=== PATIENT | male | born 1955 | race African-American/Black ===

== ENCOUNTER 2020-07-13 15:49 | Emergency (ER) | payer MEDICARE ==
[~2020-07-13] VITALS: Ht 182.9 cm; Wt 78.0 kg
[2020-07-13] MEDS ORDERED: LIDOCAINE HCL 2% LOCAL 20 ML VIAL ONE (16:07)
[2020-07-13] MEDS ORDERED: BACITRACIN ZINC 0.9GM TP ONE (16:28)
--- OUTSIDE RECORDS SUMMARY | 2020-07-13 16:47 | XMS REPORT | Continuity of Care Document ---
Author Author [facility] t Organization [facility] Address [address] [place] [address] Phone Unavailable Care Team Providers Care Parts Counterman Name Role Phone Amanda Cruz MD PCP [phone] GARCIA STEELE Attphys Unavailable JESSICA, M. ALINE Attphys Unavailable DEREK KEARNEY Admphys Unavailable JESSICA, M. ALINE Admphys Unavailable Problems Condition Name Condition Details Condition Category Status Onset Date Resolution Date Last Treatment Date Treating Clinician Comments Source Fever in adult Fever in adult Disease Active 2017-07-31 00:00:00 [facility] Pneumonia Pneumonia Disease Active 2017-07-31 00:00:00 [facility] DOT (acute kidney injury) DOT (acute kidney injury) Disease Ac tive 2017-03-15 00:00:00 [facility] CKD (chronic kidney disease) stage 2, GFR 60-89 ml/min CKD (chronic kidney disease) stage 2, GFR 60-89 ml/min Disease Active 2017-03-15 00:00:00 [facility] Essential hypertension Essential hypertension Disease Active 2017-03-15 00:00:00 [facility] Crohn disease Crohn disease Disease Active 2017-03-15 00:00:00 [facility] Gastroesophageal reflux disease without esophagitis Ga stroesophageal reflux disease without esophagitis Disease Active 2017-03-15 00:00:00 [facility] Currently smokes tobacco Currently smokes tobacco Disease Acti ve 2017-03-15 00:00:00 [facility] Allergies, Adverse Reactions, Alerts This patient has no known allergies or adverse reactions. Social History Social Habit Start Date Stop Date Quantity Comments Source Sex Assigned At [facility] Tobacco use and exposure 2017-08-02 00:00:00 2017-08-02 00:00:00 Rob rivera used [facility] Alcohol intake 2017-08-02 00:00:00 2017-08-02 00:00:00 Current drinker of alcohol (finding) [facility] Smoking Status Start Date Stop Date Source Current every day smoker 2017-08-02 00:00:00 [facility] Medications Ordered Medication Name Filled Medication Name Start Date Stop Da te Current Medication? Ordering Clinician Indication Dosage Frequency Signature (SIG) Comments Components Source lansoprazole (PREVACID) 30 MG capsule 2017-08-02 11:47:26 Yes gastroesophageal reflux disease 30mg QD Take 30 mg by mouth daily. [facility] cyanocobalamin (VITAMIN B-12) 1,000 mcg/mL injection 2 11:47:26 Yes 1000ug Inject 1,000 mcg intramuscularly every 3 0 (thirty) days. [facility] traMADol (ULTRAM) 50 mg tablet 2017-08-02 11:47:26 Yes 50mg Take 50 mg by mouth every 8 (eight) hours as needed for Pain. [facility] quinapril-hydrochlorothiazide (ACCURETIC) 20-12.5 mg per tab let 2017-08-02 11:47:26 Yes 1{tbl} QD Take 1 tablet by mouth daily. [facility] predniSONE (DELTASONE) 10 MG tablet 2017-08-02 11:47:26 Yes 10mg Take 10 mg by mouth daily as needed. [facility] Procedures This patient has no known procedures. Plan of Care Planned Activity Planned Date Details Comments Source Future Scheduled Test 2020-04-22 00:00:00 INFLUENZA VACCINE (#1) [code = INFLUENZA VACCINE (#1)] [facility] Future Scheduled Test 2019 00:00:00 PNEUMOCOCCAL 65+ Y RS (2 of 2 - PPSV23) [code = PNEUMOCOCCAL 65+ YRS (2 of 2 - PPSV23)] [facility] Future Scheduled Test 1954 00:00:00 Screening for radhika gnant neoplasm of colon (procedure) [code = 884280613] [facility] Results Test Description Test Time Test Comments Results Result Comments Source BLOOD CULTURE 2017-08-06 05:01:00 Test Item CULTURE (BEAKER) (test code = 1095) No growth in 5 days BLOOD [id number] 17:00:00* Test Item Value Reference Range Interpretation Comments CULTURE (BEAKER) (test code = 1095) No growth in 5 days STOOL CULTURE + SHIGA [id number] 11:09:00* Test Item Value Reference Range Interpretation Comments CULTURE (BEAKER) (test code = 1095) No Salmonella, Sharmin gella or Campylobacter isolated SHIGA TOXIN [id number] 15:52:00* Test Item Value Reference Range Interpretation Comments SHIGA TOXIN 1 (BEAKER) (test code = 2177) Not detected Not detected SHIGA TOXIN 2 (BEAKER) (test code = 2179) Not detected Not detected INFLUENZA A H1N1 [id number] 14:28:00* Test Item Value Reference Range Interpretation Comments INFLUENZA A RNA (BEAKER) (test code = 1545) Not Detected Not Detected, Inconclusive NOVEL H1N1 RNA (BEAKER) (test code = 1546) Not Detected Not Detected, Inconclusive These assays were performed by real-time RT-PCR (business insurance agent-PCR) utilizing fluorogenic hydrolysis probe technology for the detection of human Influenza A viruses and t he differential detection of novel H1N1 Influenza virus in respiratory specimens . The test is composed of (1) an RNA extraction from patient specimen, and (2) r RT-PCR amplification and detection with human Influenza A and novel Q2D8-udhoplb c primers and probes. A well-conserved region of the Influenza A matrix gene is targeted in one set of reactions to identify both seasonal Influenza A and novel H1N1 Influenza virus in the specimen. In addition, a specific region of the he magglutinin gene is targeted to differentiate the novel H1N1 virus from the seas onal human influenza. An internal control is used to confirm PCR amplification. Genetic variation and other factors can affect the accuracy of nucleic acid debbie ting; therefore, the results should be interpreted in light of clinical data. Th is test was developed and its performance characteristics determined by the [facility] Pathology Department, Section of Molecular Pathology. It has not been cleared or approved by the U.S. Food and Drug Administration (F DA). Since FDA approval is not required for clinical use of the test, validatio n was done as required by The Clinical Laboratory Amendments of 1988.These assay s were performed by real-time RT-PCR (business insurance agent-PCR) utilizing fluorogenic hydrolysis probe technology for the detection of human Influenza A viruses and the differ tial detection of novel H1N1 Influenza virus in respiratory specimens. The test is composed of (1) an RNA extraction from patient specimen, and (2) business insurance agent-PCR ampl ification and detection with human Influenza A and novel D4X2-qmklptan primers a nd probes. A well-conserved region of the Influenza A matrix gene is targeted in one set of reactions to identify both seasonal Influenza A and novel H1N1 Influ bertin virus in the specimen. In addition, a specific region of the hemagglutinin gene is targeted to differentiate the novel H1N1 virus from the seasonal human influenza. An internal control is used to confirm PCR amplification. Genetic va riation and other factors can affect the accuracy of nucleic acid testing; there fore, the results should be interpreted in light of clinical data. This test was developed and its performance characteristics determined by the [facility] Pathology Department, Section of Molecular Pathology. It has not been cleared or approved by the U.S. Food and Drug Administration (FDA). Since FDA approval is not required for clinical use of the test, validation was done as required by The Clinical Laboratory Amendments of 1988.STOOL PATH CHARGE 2017-08-02 10:58:00* Test Item Value Reference Range Interpretation Comments PATHOGEN EXAM CHARGED (BEAKER) (test code = 2381) Done [id number] 05:24:00* Test Item Value Reference Range Interpretation Comments MAGNESIUM (BEAKER) (test code = 627) 1.8 mg/dL 1.6-2.6 BASIC METABOLIC [id number] 05:24:00* Test Item Value Reference Range Interpretation Comments SODIUM (BEAKER) (test code = 381) 136 meq/L 136-145 POTASSIUM (BEAKER) (test code = 379) 3.9 meq/L 3.5-5.1 CHLORIDE (BEAKER) (test code = 382) 113 meq/L 98-107 H CO2 (BEAKER) (test code = 355) 16 meq/L 22-29 L BLOOD UREA NITROGEN (BEAKER) (test code = 354) 11 mg/dL 7-21 CREATININE (BEAKER) (test code = 358) 0.95 mg/dL 0.57-1.25 GLUCOSE RANDOM (BEAKER) (test code = 652) 117 mg/dL 70-105 H CALCIUM (BEAKER) (test code = 697) 8.2 mg/dL 8.4-10.2 L EGFR (BEAKER) (test code = 1092) 97 mL/min/1.73 sq m ESTIMATED GFR IS NOT ACCURATE CREATININE CLEARANCE IN PREDICTING GLOMERULAR FILTRATION RATE. ESTIMATED GFR IS NOT APPLICABLE FOR DIALYSIS PATIENTS. CBC W/PLT COUNT & AUTO [id number] 04:49:00* Test Item Value Reference Range Interpretation Comments WHITE BLOOD CELL COUNT (BEAKER) (test code = 775) 7.3 K/ L 3.5- 10.5 RED BLOOD CELL COUNT (BEAKER) (test code = 761) 3.63 M/ L 4.63-6 .08 L HEMOGLOBIN (BEAKER) (test code = 410) 11.3 GM/DL 13.7-17.5 L HEMATOCRIT (BEAKER) (test code = 411) 34.2 % 40.1-51.0 L MEAN CORPUSCULAR VOLUME (BEAKER) (test code = 753) 94.2 fL 79. 0-92.2 H MEAN CORPUSCULAR HEMOGLOBIN (BEAKER) (test code = 751) 31.1 pg 25.7-32.2 MEAN CORPUSCULAR HEMOGLOBIN CONC (BEAKER) (test code = 752) 33.0 GM/DL 32.3-36.5 RED CELL DISTRIBUTION WIDTH (BEAKER) (test code = 412) 13.2 % 11.6-14.4 PLATELET COUNT (BEAKER) (test code = 756) 402 K/CU MM 150-450 MEAN PLATELET VOLUME (BEAKER) (test code = 754) 8.7 fL 9.4-12 .4 L NUCLEATED RED BLOOD CELLS (BEAKER) (test code = 413) 0 /100 WBC 0 -0 NEUTROPHILS RELATIVE PERCENT (BEAKER) (test code = 429) 51 % LYMPHOCYTES RELATIVE PERCENT (BEAKER) (test code = 430) 36 % MONOCYTES RELATIVE PERCENT (BEAKER) (test code = 431) 10 % EOSINOPHILS RELATIVE PERCENT (BEAKER) (test code = 432) 2 % BASOPHILS RELATIVE PERCENT (BEAKER) (test code = 437) 1 % NEUTROPHILS ABSOLUTE COUNT (BEAKER) (test code = 670) 3.74 K/ L 1.78-5.38 LYMPHOCYTES ABSOLUTE COUNT (BEAKER) (test code = 414) 2.63 K/ L 1.32-3.57 MONOCYTES ABSOLUTE COUNT (BEAKER) (test code = 415) 0.73 K/ L 0. 30-0.82 EOSINOPHILS ABSOLUTE COUNT (BEAKER) (test code = 416) 0.11 K/ L 0.04-0.54 BASOPHILS ABSOLUTE COUNT (BEAKER) (test code = 417) 0.04 K/ L 0. 01-0.08 IMMATURE GRANULOCYTES-RELATIVE PERCENT (BEAKER) (test code = 2801) 1 % 0-1 SPUTUM CULTURE + GRAM [id number] 02:01:00* Test Item Value Reference Range Interpretation Comments CULTURE (BEAKER) (test code = 1095) Oropharyngeal cont amination, specimen rejected. Recollect requested. GRAM STAIN RESULT (BEAKER) (test code = 1123) 1+ WBCs GRAM STAIN RESULT (BEAKER) (test code = 03720) >25 epithelial cells GRAM STAIN RESULT (BEAKER) (test code = 75769) 4+ gram positive cocci in chains, pairs and clusters GRAM STAIN RESULT (BEAKER) (test code = 670033) 4+ gram variable ro ds RESPIRATORY PANEL [id number] 19:51:00* Test Item Value Reference Range Interpretation Comments HUMAN METAPNEUMOVIRUS (BEAKER) (test code = 2683) Not detect ed Not detected, Inconclusive RHINOVIRUS (BEAKER) (test code = 2684) Not detected Not detec lex, Inconclusive INFLUENZA A (BEAKER) (test code = 2685) Not detected Not dete cted, Inconclusive INFLUENZA A SUBTYPE H1 (BEAKER) (test code = 2686) Not detec lex Not detected, Inconclusive INFLUENZA A SUBTYPE H3 (BEAKER) (test code = 2687) Not detec lex Not detected, Inconclusive INFLUENZA A SUBTYPE H1-2009 (BEAKER) (test code = 3198) Not detected Not detected, Inconclusive INFLUENZA B (BEAKER) (test code = 2688) Not detected Not dete cted, Inconclusive RESPIRATORY SYNCYTIAL VIRUS (BEAKER) (test code = 3197) Not detected Not detected, Inconclusive PARAINFLUENZA VIRUS 1 (BEAKER) (test code = 2691) Not detect ed Not detected, Inconclusive PARAINFLUENZA VIRUS 2 (BEAKER) (test code = 2692) Not detect ed Not detected, Inconclusive PARAINFLUENZA VIRUS 3 (BEAKER) (test code = 2693) Not detect ed Not detected, Inconclusive PARAINFLUENZA VIRUS 4 (BEAKER) (test code = 3200) Not detect ed Not detected, Inconclusive ADENOVIRUS (BEAKER) (test code = 2694) Not detected Not detec lex, Inconclusive CORONAVIRUS 229E (BEAKER) (test code = 3201) Not detected Not detected, Inconclusive CORONAVIRUS HKU1 (BEAKER) (test code = 3202) Not detected Not detected, Inconclusive CORONAVIRUS NL63 (BEAKER) (test code = 3203) Not detected Not detected, Inconclusive CORONAVIRUS OC43 (BEAKER) (test code = 3204) Not detected Not detected, Inconclusive BORDETELLA PERTUSSIS (BEAKER) (test code = 3205) Not detecte d Not detected, Inconclusive CHLAMYDOPHILA PNEUMONIAE (BEAKER) (test code = 3206) Not det ected Not detected, Inconclusive MYCOPLASMA PNEUMONIAE (BEAKER) (test code = 3207) Not detect ed Not detected, Inconclusive CLOSTRIDIUM DIFFICILE TOXIN [id number] 13:31:00* Test Item Value Reference Range Interpretation Comments CLOSTRIDIUM DIFFICILE TOXIN, PCR (BEAKER) (test code = 1525) Not Detected Not Detected This qualitative real-time polymerase chain reaction assay detects the tcdB gene , encoded on the C.difficile pathogenicity locus (PaLoc). The product of tcdB, toxin B, is a cytotoxin essential for causing C.difficile-associated disease (CD AD) and is found in virtually all toxigenic C.difficile.This assay is performed for patients suspected of having either community-acquired or nosocomial CDAD. Accordingly, only symptomatic patients should be tested and formed stools will b e rejected unless ileus is present (i.e., specified when ordering). Patients ma y be colonized with toxigenic C.difficile strains not causing active disease; th erefore, clinical correlation is needed when deciding how to manage patients wit h a positive test result.The assay has not been validated as a test of cure as a mplifiable nucleic acid may persist after effective treatment; therefore, follow -up testing of a positive result is not recommended.[place] TITER AND PATTERN 2017-08-01 10:59:00* Test Item Value Reference Range Interpretation Comments VALENTINA TITER (BEAKER) (test code = 1541) >=:2560 [place] PATTERN (BEAKER) (test code = 1781) Homogeneous ANTI-NUCLEAR ANTIBODY (VAL[place])2017-08-01 10:58:00* Test Item Value Reference Range Interpretation Comments ANTI-NUCLEAR ANTIBODY ([place]) (BEAKER) (test code = 418) Positive Negative A LEGIONELLA ANTIGEN, [id number] 07:52:00* Test Item Value Reference Range Interpretation Comments L. PNEUMOPHILA SEROGP 1 UR AG (BEAKER) (test code = 11 56) Negative - see comment Negative for L. pneu mophila serogroup 1 antigen, suggesting no recent or current infection with this serogroup. Legionellosis cannot be ruled out since other serogroups and species may cause disease. STREP PNEUMONIAE [id number] 07:52:00* Test Item Value Reference Range Interpretation Comments STREP PNEUMONIAE ANTIGEN (BEAKER) (test code = 1615) P resumptive negative for pneumococcal pneumonia - see comment Presumptive negative for pneumococcal pneumonia - see commen Presumptive negative for pneumococcal pneumonia, suggesting no current or recent pneumococcal infection. Infection due to S. pneumoniae cannot be ruled out since the antigen present in the sample may be below the detection limit of the test. CT, CHEST, WITHOUT [id number] 07:46:00FINAL REPORT INDICATION: 62-year-old male with shortness of breath. COMPARISON:Chest radiograph July 31, 2017Abdomen pelvis CT exam July 31, 2017 TECHNIQUE: Chest CT exam WITHOUT intravenous contrast. The exam was performed according to our department dose-optimization protocol, which includes automated exposure control, adjustments of mA and kV according to patient size. Iterative reconstructions are also sometimes employed. FINDINGS:There is a patchy opacity with air bronchograms in the right middle lobe, representing pneumonia. In the posterior segment of the right upper lobe there are a few nodular opacities representing pneumonitis. No left lung pneumonia. No parapneumonic effusion. Central airways are clear. No mediastinal or hilar lymphadenopathy. Heart and pericardium are unremarkable. Thyroid gland and esophagus are unremarkable. No suspicious osseous lesion is demonstrated. Partial imaging of the upper abdomen hyperdense material within the collecting systems is noted, may be related to prior IV contrast administration. IMPRESSION: Right middle lobe pneumonia. Si gned: Víctor Graham MDReport Verified Date/Time: 08/01/2017 07:46:29 Reading Location: [facility] Diagnostic Imaging Reading Room - [place] [address] Electronically s igned by: VÍCTOR GRAHAM M.D. on 08/01/2017 07:46 AM TSH/FREE T4 IF [id number] 07:01:00* Test Item Value Reference Range Interpretation Comments THYROID STIMULATING HORMONE (BEAKER) (test code = 772) 0.63 uIU/mL 0.35-4.94 [id number] 06:21:00* Test Item Value Reference Range Interpretation Comments MAGNESIUM (BEAKER) (test code = 627) 1.5 mg/dL 1.6-2.6 L BASIC METABOLIC [id number] 06:21:00* Test Item Value Reference Range Interpretation Comments SODIUM (BEAKER) (test code = 381) 136 meq/L 136-145 POTASSIUM (BEAKER) (test code = 379) 3.4 meq/L 3.5-5.1 L CHLORIDE (BEAKER) (test code = 382) 108 meq/L 98-107 H CO2 (BEAKER) (test code = 355) 18 meq/L 22-29 L BLOOD UREA NITROGEN (BEAKER) (test code = 354) 13 mg/dL 7-21 CREATININE (BEAKER) (test code = 358) 1.00 mg/dL 0.57-1.25 GLUCOSE RANDOM (BEAKER) (test code = 652) 104 mg/dL 70-105 CALCIUM (BEAKER) (test code = 697) 8.0 mg/dL 8.4-10.2 L EGFR (BEAKER) (test code = 1092) 91 mL/min/1.73 sq m ESTIMATED GFR IS NOT ACCURATE CREATININE CLEARANCE IN PREDICTING GLOMERULAR FILTRATION RATE. ESTIMATED GFR IS NOT APPLICABLE FOR DIALYSIS PATIENTS. HEPATIC FUNCTION [id number] 06:21:00* Test Item Value Reference Range Interpretation Comments TOTAL PROTEIN (BEAKER) (test code = 770) 6.2 gm/dL 6.0-8.3 ALBUMIN (BEAKER) (test code = 1145) 3.0 g/dL 3.5-5.0 L BILIRUBIN TOTAL (BEAKER) (test code = 377) 0.6 mg/dL 0.2-1.2 BILIRUBIN DIRECT (BEAKER) (test code = 706) 0.3 mg/dL 0.1-0.5 ALKALINE PHOSPHATASE (BEAKER) (test code = 346) 111 U/L 40-150 AST (SGOT) (BEAKER) (test code = 353) 33 U/L 5-34 ALT (SGPT) (BEAKER) (test code = 347) 42 U/L 6-55 CBC W/PLT COUNT & AUTO [id number] 05:26:00* Test Item Value Reference Range Interpretation Comments WHITE BLOOD CELL COUNT (BEAKER) (test code = 775) 13.1 K/ L 3.5- 10.5 H RED BLOOD CELL COUNT (BEAKER) (test code = 761) 3.57 M/ L 4.63-6 .08 L HEMOGLOBIN (BEAKER) (test code = 410) 11.2 GM/DL 13.7-17.5 L HEMATOCRIT (BEAKER) (test code = 411) 33.6 % 40.1-51.0 L MEAN CORPUSCULAR VOLUME (BEAKER) (test code = 753) 94.1 fL 79. 0-92.2 H MEAN CORPUSCULAR HEMOGLOBIN (BEAKER) (test code = 751) 31.4 pg 25.7-32.2 MEAN CORPUSCULAR HEMOGLOBIN CONC (BEAKER) (test code = 752) 33.3 GM/DL 32.3-36.5 RED CELL DISTRIBUTION WIDTH (BEAKER) (test code = 412) 13.3 % 11.6-14.4 PLATELET COUNT (BEAKER) (test code = 756) 310 K/CU MM 150-450 MEAN PLATELET VOLUME (BEAKER) (test code = 754) 9.6 fL 9.4-12 .4 NUCLEATED RED BLOOD CELLS (BEAKER) (test code = 413) 0 /100 WBC 0 -0 NEUTROPHILS RELATIVE PERCENT (BEAKER) (test code = 429) 65 % LYMPHOCYTES RELATIVE PERCENT (BEAKER) (test code = 430) 22 % MONOCYTES RELATIVE PERCENT (BEAKER) (test code = 431) 11 % EOSINOPHILS RELATIVE PERCENT (BEAKER) (test code = 432) 1 % BASOPHILS RELATIVE PERCENT (BEAKER) (test code = 437) 0 % NEUTROPHILS ABSOLUTE COUNT (BEAKER) (test code = 670) 8.43 K/ L 1.78-5.38 H LYMPHOCYTES ABSOLUTE COUNT (BEAKER) (test code = 414) 2.91 K/ L 1.32-3.57 MONOCYTES ABSOLUTE COUNT (BEAKER) (test code = 415) 1.47 K/ L 0. 30-0.82 H EOSINOPHILS ABSOLUTE COUNT (BEAKER) (test code = 416) 0.10 K/ L 0.04-0.54 BASOPHILS ABSOLUTE COUNT (BEAKER) (test code = 417) 0.05 K/ L 0. 01-0.08 IMMATURE GRANULOCYTES-RELATIVE PERCENT (BEAKER) (test code = 2801) 1 % 0-1 COMPLEMENT COMPONENT [id number] 00:17:00* Test Item Value Reference Range Interpretation Comments C4 COMPLEMENT (BEAKER) (test code = 394) 46 mg/dL 15-57 COMPLEMENT COMPONENT [id number] 00:17:00* Test Item Value Reference Range Interpretation Comments C3 COMPLEMENT (BEAKER) (test code = 393) 182 mg/dL 82-193 SEDIMENTATION [id number] 23:49:00* Test Item Value Reference Range Interpretation Comments SEDIMENTATION RATE, ERYTHROCYTE (BEAKER) (test code = 766) 100 mm/H R 0-20 H CREATINE KINASE (CK)2017-07-31 22:56:00* Test Item Value Reference Range Interpretation Comments CREATINE KINASE TOTAL (BEAKER) (test code = 380) 51 U/L 29-20 0 C-REACTIVE [id number] 22:56:00* Test Item Value Reference Range Interpretation Comments C-REACTIVE PROTEIN (BEAKER) (test code = 676) 10.69 mg/dL 0.00-0.5 0 H RAD, CHEST, 1 VIEW, NON [id number] 20:50:00Reason for exam:->pnaFINAL REPORT RAD, CHEST, 1 VIEW, NON DEPT INDICATION: pna COMPARISON: January 06, 2005 FINDINGS: Portable frontal view of the chest. IMPRESSION: Support Lines: None. Lungs and pleura: Focal airspace disease in the periphery of the right middle lobe. No effusion or pneumothorax.Heart and mediastinum: Unremarkable cardiomediastinal contours.Additional findings: None. Signed: Tristan maurice JR, Robert MDReport Verified Date/Time: 07/31/2017 20:50:00 Reading Location: [facility] C013Y CT Body Reading Room , [id number] 12:43:00Reason for exam:->FEVER, low back painWhat is the patient's sedation requirement?->No SedationFINAL REPORT HISTORY : Abdominal pain, unspecifiedFEVER, low back pain Technique: Multiple axial images of the abdomen and pelvis were performed without the administration of IV or oral contrast. This exam was performed according to our departmental dose optimization program which includes automated exposure control, adjustment of the mA and/or kV according to patient size and/or use of iterative reconstructive technique. COMPARISON : 01/06/2015 COMMENT : There is some partially visualized mixed alveolar and groundglass airspace disease in the right middle lobe with an area of consolidation. The findings are most concerning for pneumonitis. Of note, there is only partially visualized limiting evaluation. A dedicated chest CT as well as close follow-up CT is advised for further/better characterization. The visualized liver, spleen, adrenal glands, pancreas, stomach and duodenum are within normal limits. There are bilateral renal cysts and cystic lesions. The largest is seen in the right interpolar kidney measuring up to 4.9 cm. Some hyperdense material is seen in the bilateral renal collecting systems and could be related to contrast administration from a recent contrast-enhanced exam. Findings should be correlated with the patient's procedural history. Hemorrhagic or proteinaceous fluid within the renal collecting system is an additional consideration. In the lower pole of left kidney, there is a 1.3 cm stone. No ureteral stones are seen. There is some nonspecific bilateral perinephric stranding/edema. A process such as pyelonephritis among other potential etiologies cannot be excluded. There is atherosclerotic vascular disease. There is no abdominal, retroperitoneal or pelvic lymphadenopathy. Multilevel deg enerative changes of the thoracolumbar spine are seen. There is some likely scar identified in the anterior abdominal wall. There is no free fluid or free air in the abdomen or pelvis. No findings of any bowel obstruction. There are areas of some long segment thickening identified of the colon including the rectosigmoid colon. While the wall thickening could be related to underdistention, a degree of nonspecific inflammatory versus infectious versus ischemic colitis cannot be excluded. Post surgical changes are seen consistent with a right hemicolectomy. There are some loops of small bowel in the left abdomen that demonstrate some w all thickening. The thickening could be due to peristalsis versus a nonspecific enteritis. The prostate gland is mildly enlarged. The seminal vesicles are chana sly within normal limits. There is a small left-sided fat-containing inguinal he rnia. No bowel contents are seen within the hernia, however. Impression: 1. Partially visualized airspace disease in the right middle lobe, possibly represe nting pneumonitis. 2. Postsurgical changes consistent with a right hemicolectomy . There are no findings of bowel obstruction. 3. Areas of long segment thickenin g of the colon and small bowel. While the findings may be related to underdisten tion or peristalsis, a nonspecific enterocolitis cannot be excluded. 4. Left april al stone with bilateral renal cysts. There is nonspecific bilateral perinephric stranding/edema. 5. Hyperdense material in the renal collecting systems, possibl y excreted contrast from a recent prior outside contrast enhanced examination. C orrelation with the patient's procedural history is advised. Please see above fo r details. Signed: Winter Sullivan MDReport Verified Date/Time: 07/31/2017 12:43:3 2 Reading Location: [address] Transitional Reading Room REHENSIVE METABOLIC [id number] 12:00:00* Test Item Value Reference Range Interpretation Comments TOTAL PROTEIN (BEAKER) (test code = 770) 7.7 gm/dL 6.0-8.5 ALBUMIN (BEAKER) (test code = 1145) 3.9 g/dL 3.5-5.0 ALKALINE PHOSPHATASE (BEAKER) (test code = 346) 121 U/L 30-115 H BILIRUBIN TOTAL (BEAKER) (test code = 377) 1.1 mg/dL 0.1-1.2 SODIUM (BEAKER) (test code = 381) 140 meq/L 135-148 POTASSIUM (BEAKER) (test code = 379) 4.2 meq/L 3.6-5.5 CHLORIDE (BEAKER) (test code = 382) 102 meq/L 98-106 CO2 (BEAKER) (test code = 355) 22 meq/L 24-32 L BLOOD UREA NITROGEN (BEAKER) (test code = 354) 14 mg/dL 10-26 CREATININE (BEAKER) (test code = 358) 1.12 mg/dL 0.50-1.20 GLUCOSE RANDOM (BEAKER) (test code = 652) 83 mg/dL 70-110 CALCIUM (BEAKER) (test code = 697) 9.1 mg/dL 8.5-10.5 AST (SGOT) (BEAKER) (test code = 353) 32 U/L 5-40 ALT (SGPT) (BEAKER) (test code = 347) 53 U/L 5-50 H EGFR (BEAKER) (test code = 1092) 80 mL/min/1.73 sq m ESTIMATED GFR IS NOT ACCURATE CREATININE CLEARANCE IN PREDICTING GLOMERULAR FILTRATION RATE. ESTIMATED GFR IS NOT APPLICABLE FOR DIALYSIS PATIENTS. CBC W/PLT COUNT & AUTO [id number] 11:56:00* Test Item Value Reference Range Interpretation Comments WHITE BLOOD CELL COUNT (BEAKER) (test code = 775) 17.1 10e3/ L 4.0- 10.0 H RED BLOOD CELL COUNT (BEAKER) (test code = 761) 4.18 10e6/ L 4.20-5 .80 L HEMOGLOBIN (BEAKER) (test code = 410) 13.2 g/dL 13.0-16.8 HEMATOCRIT (BEAKER) (test code = 411) 39.9 % 40.0-50.0 L MEAN CORPUSCULAR VOLUME (BEAKER) (test code = 753) 95.4 fL 82. 0-98.0 MEAN CORPUSCULAR HEMOGLOBIN (BEAKER) (test code = 751) 31.6 pg 27.0-33.0 MEAN CORPUSCULAR HEMOGLOBIN CONC (BEAKER) (test code = 752) 33.1 g/dL 32.0-36.0 RED CELL DISTRIBUTION WIDTH (BEAKER) (test code = 412) 12.4 % 10.3-14.2 PLATELET COUNT (BEAKER) (test code = 756) 371 10e3/ L 150-430 MEAN PLATELET VOLUME (BEAKER) (test code = 754) 6.8 fL 6.5-10 .5 NEUTROPHILS RELATIVE PERCENT (BEAKER) (test code = 429) 69 % LYMPHOCYTES RELATIVE PERCENT (BEAKER) (test code = 430) 18 % MONOCYTES RELATIVE PERCENT (BEAKER) (test code = 431) 11 % EOSINOPHILS RELATIVE PERCENT (BEAKER) (test code = 432) 1 % BASOPHILS RELATIVE PERCENT (BEAKER) (test code = 437) 1 % NEUTROPHILS ABSOLUTE COUNT (BEAKER) (test code = 670) 11.75 10e3/ L 1.80-8.00 H LYMPHOCYTES ABSOLUTE COUNT (BEAKER) (test code = 414) 3.07 10e3/ L 1.48-4.50 MONOCYTES ABSOLUTE COUNT (BEAKER) (test code = 415) 1.94 10e3/ L 0. 00-1.30 H EOSINOPHILS ABSOLUTE COUNT (BEAKER) (test code = 416) 0.22 10e3/ L 0.00-0.50 BASOPHILS ABSOLUTE COUNT (BEAKER) (test code = 417) 0.15 10e3/ L 0. 00-0.20 URINALYSIS W/ REFLEX URINE [id number] 11:47:00* Test Item Value Reference Range Interpretation Comments COLOR (BEAKER) (test code = 470) [place] CLARITY (BEAKER) (test code = 469) Slightly Hazy SPECIFIC GRAVITY UA (BEAKER) (test code = 468) 1.020 1.001-1 .035 PH UA (BEAKER) (test code = 467) 5.5 5.0-8.0 PROTEIN UA (BEAKER) (test code = 464) Trace Negative A GLUCOSE UA (BEAKER) (test code = 365) Negative Negative KETONES UA (BEAKER) (test code = 371) Negative Negative BILIRUBIN UA (BEAKER) (test code = 462) Negative Negative BLOOD UA (BEAKER) (test code = 461) Negative Negative NITRITE UA (BEAKER) (test code = 465) Negative Negative LEUKOCYTE ESTERASE UA (BEAKER) (test code = 466) Negative Negat jack UROBILINOGEN UA (BEAKER) (test code = 463) 0.2 mg/dL 0.2-1.0 BACTERIA (BEAKER) (test code = 517) Few MUCUS (BEAKER) (test code = 1574) Few RBC UA-MANUAL (BEAKER) (test code = 1659) <5 /HPF WBC UA-MANUAL (BEAKER) (test code = 1661) <5 /HPF SQUAMOUS EPITHELIAL MANUAL (BEAKER) (test code = 1663) <5 /HPF SOURCE(BEAKER) (test code = 2795) BASIC METABOLIC [id number] 07:31:00* Test Item Value Reference Range Interpretation Comments SODIUM (BEAKER) (test code = 381) 139 meq/L 136-145 POTASSIUM (BEAKER) (test code = 379) 4.1 meq/L 3.5-5.1 Specimen slightly hemolyzed CHLORIDE (BEAKER) (test code = 382) 114 meq/L 98-107 H CO2 (BEAKER) (test code = 355) 17 meq/L 22-29 L BLOOD UREA NITROGEN (BEAKER) (test code = 354) 26 mg/dL 7-21 H CREATININE (BEAKER) (test code = 358) 1.37 mg/dL 0.57-1.25 H Specimen slightly hemolyzed GLUCOSE RANDOM (BEAKER) (test code = 652) 95 mg/dL 70-105 CALCIUM (BEAKER) (test code = 697) 7.9 mg/dL 8.4-10.2 L EGFR (BEAKER) (test code = 1092) 64 mL/min/1.73 sq m ESTIMATED GFR IS NOT ACCURATE CREATININE CLEARANCE IN PREDICTING GLOMERULAR FILTRATION RATE. ESTIMATED GFR IS NOT APPLICABLE FOR DIALYSIS PATIENTS. CREATINE KINASE (CK)2017-03-16 07:17:00* Test Item Value Reference Range Interpretation Comments CREATINE KINASE TOTAL (BEAKER) (test code = 380) 134 U/L 29-20 0
--- OUTSIDE RECORDS SUMMARY | 2020-07-13 16:47 | XMS REPORT | Clinical Summary ---
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 gastroesophageal reflux disease Active cyanocobalamin (VITAMIN Inject 1,000 0 B-12) 1,000 mcg/mL mcg injection intramuscular ly every 30 (thirty) days. Active traMADol (ULTRAM) 50 mg Take 50 mg by 0 tablet mouth every 8 (eight) hours as needed for Pain. Active quinapril-hydrochlorothia Take 1 tablet 0 zide (ACCURETIC) 20-12.5 by mouth mg per tablet daily. Active predniSONE (DELTASONE) 10 Take 10 mg by 0 MG tablet mouth daily as needed. Active Problems Problem Noted Date Fever in adult 07/31/2017 Pneumonia 07/31/2017 DOT (acute kidney injury) 03/15/2017 CKD (chronic kidney disease) stage 2, GFR 60-89 ml/mi n 03/15/2017 Essential hypertension 03/15/2017 Crohn disease 03/15/2017 Gastroesophageal reflux disease without esophagitis 03/15/2017 Currently smokes tobacco 03/15/2017 Social History Date Tobacco Use Types Packs/Day Years Used Current Every Day Smoker Smokeless Tobacco: Never Used Drinks/Week oz/Week Comments Alcohol Use Yes Sex Assigned at Date Recorded Not on file Last Filed Vital Signs Not on file Plan of Treatment Health Maintenance Due Date Last Done Comments COLON CANCER SCREENING 1955 COLONOSCOPY PNEUMOCOCCAL 65+ YRS (2 2019 11/09/2016, of 2 - PPSV23) 08/30/2014 INFLUENZA VACCINE (#1) 2020 07/18/2017, 05/25/2016, 05/13/2015, Additional history exists Results Not on fileafter 07/13/2019 Insurance Type Payer Benefit Subscriber ID Effective Phone Address Plan / Dates Group HMO/POS [employer] - [employer] [id number] 2016- [place] Present PLAN Advance Directives For more information, please contact: [phone] Date Inactivated Comments Code Status Date Activated 08/02/2017 1:47 PM Full Code 07/31/2017 7:24 PM This code status was determined by: Patient 03/16/2017 5:15 PM Full Code 03/15/2017 2:19 PM This code status was determined by: Patient
--- NOTE | 2020-07-13 16:51 | Emergency Department Note ---
History of Present Illnes History of Present Illness Chief Complaint: Lacerations right leg s/p hitting it on a generator History of Present Illness This is a 65 year old male. was doing well prior to this. Historian: Patient Arrival Mode: Car History limited by: condition of the patient (normal) Consulting Technical Manager Required: No Onset (how long ago): hour(s) (2) Location: see above Quality: sharp Radiation: Reports non-radiation Severity: moderate Onset quality: sudden Duration (how long): hour(s) (2) Timing of current episode: constant Progression: unchanged Chronicity: new Context: Reports trauma/injury Exacerbating factors: none Associated symptoms: Reports denies other symptoms Treatments prior to arrival: none Past Medical/Family History Physician Review I have reviewed the patient's past medical and family history. Any updates have been documented here. Past Medical History Recent Fever: No Clinical Suspicion of Infectio: No New/Unexplained Change in Ment: No Past Medical History: Hypertension Other Medical History: SMOKER + HX OF CROHNS Past Surgical History: Colon Resection Other Surgery: D/T CROHNS Social History Smoking Cessation: Current every day smoker Counseling Performed: No Alcohol Use: Occasional Any Illegal Drug Use: No Physically hurt or threatened: No Other Any Pre-Existing Lines (PICC,: No Review of Systems Review of Systems Constitutional: Reports no symptoms EENTM: Reports no symptoms Cardiovascular: Reports no symptoms Respiratory: Reports no symptoms Gastrointestinal: Reports no symptoms Genitourinary: Reports no symptoms Musculoskeletal: Reports no symptoms Integumentary: Reports as per HPI Neurological: Reports no symptoms Psychological: Reports no symptoms Endocrine: Reports no symptoms Hematological/Lymphatic: Reports no symptoms Review of other systems: All other systems negative Physical Exam Related Data Allergies: Coded Allergies: ibuprofen (Verified Allergy, Unknown, 07/13/20) d/t crohns hx Triage Vital Signs Vital Signs Date Time Temp Pulse Resp B/P (MAP) Pulse Ox O2 Delivery O2 Flow Rate FiO2 07/13/20 15:50 98.9 96 18 169/91 100 Room Air Vital signs reviewed: Yes Physical Exam CONSTITUTIONAL Constitutional: Present well-developed, Present well-nourished HENT HENT: Present normocephalic, Present atraumatic, Present oropharynx clear/moist, Present nose normal HENT L/R: Present left ext ear normal, Present right ext ear normal EYES Eyes: Reports PERRL, Reports conjunctivae normal NECK Neck: Present ROM normal PULMONARY Pulmonary: Present effort normal, Present breath sounds normal CARDIOVASCULAR Cardiovascular: Present regular rhythm, Present heart sounds normal, Present capillary refill normal, Present normal rate GASTROINTESTINAL Abdominal: Present soft, Present nontender, Present bowel sounds normal GENITOURINARY Genitourinary: Present exam deferred SKIN Skin: Present warm, Present dry, Present other (3cm skin tear mid rgt skin/ 4cm laceration distal rgt anterior leg) MUSCULOSKELETAL Musculoskeletal: Present ROM normal NEUROLOGICAL Neurological: Present alert, Present oriented x 3, Present no gross motor or sensory deficits PSYCHOLOGICAL Psychological: Present mood/affect normal, Present judgement normal Procedures Laceration Laceration: Laceration 1 Site: lower extremity (rgt leg) Side: right Size (cm): 4 Description: stellate Depth: simple, single layer Local anesthesia: lidocaine 1% Amount of anesthesia (mL): 3 Pre-repair: wound exposed, irrigated extensively Skin layer closed with: nylon Size (cm): 3-0 Number of sutures: 4 Technique: simple, interrupted Additional comments no complications// steristrips placed on skin tear rgt mid gifford Assessment & Plan Medical Decision Making MDM see below Assessment & Plan Final Impression: (1) Laceration (2) Skin tear Depart Disposition: HOME, SELF-CARE Last Vital Signs Date Time Temp Pulse Resp B/P (MAP) Pulse Ox O2 Delivery O2 Flow Rate FiO2 07/13/20 15:50 98.9 96 18 169/91 100 Room Air Home Meds Active Scripts Sulfamethoxazole/Trimethoprim (BACTRIM DS TABLET) 1 Each Tablet, 1 TAB PO Q12H, #20 TAB Prov:RASHMI RHODES 07/13/20 Medications in the ED Lidocaine HCl 400 mg STK-MED ONCE .ROUTE ; Start 07/13/20 at 16:07; Stop 07/13/20 at 16:03; Status DC Lidocaine HCl 20 mg ONCE ONCE INJ ; Start 07/13/20 at 16:30; Stop 07/13/20 at 16:34; Status DC Bacitracin Zinc 3 ea ONCE ONCE TP ; Start 07/13/20 at 16:30; Stop 07/13/20 at 16:31; Status DC Bacitracin Zinc 3 ea STK-MED ONCE TP ; Start 07/13/20 at 16:28; Stop 07/13/20 at 16:21; Status DC RASHMI RHODES Jul 13, 2020 16:51
[2020-07-13] MEDS ORDERED: BACTRIM DS TAB1 EACH PO (16:57)
[2020-07-13] MEDS: BACITRACIN ZINC 0.9GM TP ONE (16:57)
[2020-07-13] MEDS: LIDOCAINE HCL 2% LOCAL 20 ML VIAL INJ ONE (16:57)
== END 2020-07-13 17:11 | disposition home or self-care (01) ==
LOC: FSED 15:56
DX: S81.811A Laceration without foreign body, right lower leg, initial encounter (principal); W22.09XA Striking against other stationary object, initial encounter; Y92.008 Other place in unspecified non-institutional (private) residence as the place of occurrence of the external cause; F17.210 Nicotine dependence, cigarettes, uncomplicated; I10 Essential (primary) hypertension; Z98.0 Intestinal bypass and anastomosis status
CPT/HCPCS: 12002; 62270; 99284; J2001

== ENCOUNTER 2020-07-27 13:01 | Emergency (ER) | payer MEDICARE ==
[~2020-07-27] VITALS: Ht 182.9 cm; Wt 78.0 kg
[~2020-07-27 13:01] MED LIST: BACTRIM DS TAB1 EACH PO
== END 2020-07-27 13:22 | disposition home or self-care (01) ==
LOC: FSED 13:10
DX: Z48.02 Encounter for removal of sutures (principal); I10 Essential (primary) hypertension
CPT/HCPCS: 99282